=== PATIENT | female | born 1960 | race African-American/Black ===

== ENCOUNTER 2019-12-20 21:28 | Emergency (ER) | payer OTHER, SELFPAY ==
[2019-12-20 21:29] VITALS: BP 175/74; PULSE 74; RESP 14; TEMP 36.9; O2SAT 94
[2019-12-20 22:19] VITALS: BP 143/119; PULSE 80; RESP 16; O2SAT 97
--- NOTE | 2019-12-20 22:49 | ED.DIZZY ---
HPI - Dizziness General Chief Complaint: Dizziness Stated Complaint: dizzyness Time Seen by Provider: 12/20/19 22:44 History of Present Illness HPI Narrative: Brought in by EMS from work for light headedness. 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 She nearly lost consciousness. She was cooled with ice water and began to improve. She received IV fluids by EMS on my evaluation she reports that her symptoms have resolved and she is feeling 100% better. No chest pain, palpitations, SOB. Review of Systems Review of Systems: All systems reviewed & are unremarkable except as noted in HPI and below Constitutional: Constitutional: Denies fever(s) Cardiovascular: Cardiovascular: Reports chest pain Respiratory: Respiratory: Denies dyspnea Gastrointestinal: Gastrointestinal: Denies nausea Neurologic: Denies confusion, Denies syncope and Denies weakness Exam Const: General: healthy appearing, no acute distress and alert Orientation/consciousness: patient oriented x3 HENMT: Head: normal to inspection Resp: Effort & Inspection: normal respiratory effort Auscultation: clear to auscultation bilaterally, no rales, no rhonchi and no wheezes Cardio: Jugular venous distension: no JVD Rate: regular rate Rhythm: regular rhythm Heart sounds: no murmurs GI: GI Palp: Yes Soft to palpation and No Tenderness to palpation present (GI) Skin: General skin exam: normal color Neuro: General: patient oriented x3, moves all extremities, no focal motor deficits and CN's II-XI intact bilaterally Speech: normal speech Gait exam (Neuro): Normal gait present Extrem: General: no edema Psych: Appearance: grossly normal and well kempt Mental Status: mental status grossly normal Affect: normal affect Thought content: Yes Normal thought content present Course Vital Signs Vital signs: Vital Signs Temperature 36.9 C 12/20/19 21:29 Pulse Rate 74 12/20/19 21:29 Respiratory Rate 14 12/20/19 21:29 Blood Pressure 175/74 H 12/20/19 21:29 Pulse Oximetry 94 12/20/19 21:29 Temperature 36.8 C 12/20/19 23:21 Pulse Rate 78 12/20/19 23:21 Respiratory Rate 16 12/20/19 23:21 Blood Pressure 160/83 H 12/20/19 23:21 Pulse Oximetry 98 12/20/19 23:21 MDM - Dizziness MDM Narrative Medical decision making narrative: Near syncope/heat exhaustion. Resolved with fluids and cooling. Medical Records Attestation: I reviewed the patient's medical records. Discharge Plan Discharge Clinical Impression: Near syncope Patient Disposition: Home, Self-Care Condition: Stable Instructions: Near Syncope (ED) Follow-up/Referrals: PHYSICIAN NOT ON STAFF,NONSTAFF [Primary Care Provider] - Discharge Date/Time: 12/20/19 23:23
[2019-12-20 23:21] VITALS: BP 160/83; PULSE 78; RESP 16; TEMP 36.8; O2SAT 98
== END 2019-12-20 23:23 | disposition home or self-care (01) ==
PROVIDERS: Emergency Provider Emergency Medicine
DX: R55 Syncope and collapse (principal)
CPT/HCPCS: 99283